=== PATIENT | female | born 1980 | race Caucasian/White ===

== ENCOUNTER 2016-12-06 08:15 | Inpatient (IN) | payer OTHER ==
[~2016-12-06] VITALS: Ht 175.3 cm; Wt 94.0 kg
[2016-12-06] VITALS (18 sets, daily range): BP systolic 93–134; BP diastolic 55–81
[~2016-12-06 08:15] MED LIST: K-DUR10 MEQ PO; METHADONE10 MG PO; OXYCODONE HCL15 MG PO; SYNTHROID25 MCG PO; XANAX0.5 MG PO
[2016-12-06] MEDS ORDERED: METHADONE HCL40 MG PO (08:58)
[2016-12-06] MEDS ORDERED: METHADONE10 MG PO (08:59)
[2016-12-06 09:18] LABS: EOSINOPHIL (%) 1.7 % (0-5); EOSINOPHIL COUNT 0.2 K/uL (0-0.3); HEMATOCRIT 33.2 % (36.0-46.0); IMMATURE GRANULOCYTE (%) 0.3 % (0.0-0.7); MCH 27.4 PG (29.0-34.0); MCHC 33.1 G/DL (30.0-36.0); MCV 82.8 FL (83-99); MEAN PLAT.VOLUME 10.3 uM^3 (9.5-12.4); MONOCYTE (%) 9.7 % (3-12); MONOCYTE COUNT 0.9 K/uL (0-0.8); NEUTROPHIL (%) 66.8 % (45-76); NEUTROPHIL COUNT 6.3 K/uL (1.8-6.4); PLATELET COUNT 310 K/uL (156-360); RBC DIS.WIDTH-CV 13.4 % (11.8-14.6); RBC DIS.WIDTH-SD 40.7 % (39-53); RED BLOOD COUNT 4.01 M/uL (3.80-5.20); WHITE BLOOD COUNT 9.5 K/uL (4.1-10.2)
[2016-12-06 11:46] LABS: HPCA INDEX 0.08
[2016-12-06 13:02] LABS: AMPHETAMINES QUANT VALUE 0 NG/ML; BARBITUATES QUANT VALUE 0 NG/ML; BENZODIAZEPINES QUANT VALUE 0 NG/ML; BENZODIAZEPINES, URINE SCREEN Negative (200 ng/mL); OPIATES QUANTITATIVE VALUE 0 NG/ML; PHENCYCLIDINE QUANT VALUE 0 NG/ML
[2016-12-07 06:46] LABS: NRBC (%) 0.6 /100 WBC (0-0)
[2016-12-07 07:29] LABS: EOSINOPHIL COUNT 0.1 K/uL (0-0.3); HEMATOCRIT 27.2 % (36.0-46.0); IMMATURE GRANULOCYTE (%) 0.5 % (0.0-0.7); IMMATURE GRANULOCYTE COUNT 0.1 K/uL; LYMPHOCYTE COUNT 2.4 K/uL (1.0-2.8); MCH 28.4 PG (29.0-34.0); MCHC 34.2 G/DL (30.0-36.0); MCV 83.2 FL (83-99); MONOCYTE (%) 10.4 % (3-12); MONOCYTE COUNT 1.4 K/uL (0-0.8); NEUTROPHIL (%) 69.7 % (45-76); NEUTROPHIL COUNT 9.3 K/uL (1.8-6.4); RBC DIS.WIDTH-CV 13.3 % (11.8-14.6); RBC DIS.WIDTH-SD 40.8 % (39-53); RED BLOOD COUNT 3.27 M/uL (3.80-5.20)
[2016-12-07 07:40] LABS: WHITE BLOOD COUNT 13.3 K/uL (4.1-10.2)
[2016-12-07 07:45] VITALS: BP 116/67
[2016-12-07 08:21] LABS: MEAN PLAT.VOLUME 9.8 uM^3 (9.5-12.4); PLAT.SUFFICIENCY ADEQUATE
[2016-12-07 08:34] LABS: PLATELET COUNT 210 K/uL (156-360)
[2016-12-07 15:28] VITALS: BP 117/65
[2016-12-07] MEDS ORDERED: Tylenol Extra Streng PO (19:09)
[2016-12-07] MEDS ORDERED: IBUPROFEN800 MG PO (19:15)
[2016-12-07] MEDS ORDERED: OXAYDO5 MG PO (19:15)
== END 2016-12-07 19:55 | disposition home or self-care (01) | DRG 774 ==
LOC: LDRP-OP → 2WEST 08:16 → LDRP-OP 08:20 → 2WEST 18:05 → LDRP-OP 01-14 23:39
PROVIDERS: Advanced Practice Midwife
PROC: 10E0XZZ Delivery of Products of Conception, External Approach (ICD-10-PCS; principal; 2016-12-06)
PROC: 10907ZC Drainage of Amniotic Fluid, Therapeutic from Products of Conception, Via Natural or Artificial Opening (ICD-10-PCS; 2016-12-06)
PROC: 3E0S3BZ Introduction of Anesthetic Agent into Epidural Space, Percutaneous Approach (ICD-10-PCS; 2016-12-06)
DX: O99.344 Other mental disorders complicating childbirth (principal); O98.52 Other viral diseases complicating childbirth; F11.20 Opioid dependence, uncomplicated; F33.9 Major depressive disorder, recurrent, unspecified; O99.354 Diseases of the nervous system complicating childbirth; Z37.0 Single live birth; O99.334 Smoking (tobacco) complicating childbirth; F12.90 Cannabis use, unspecified, uncomplicated; F17.210 Nicotine dependence, cigarettes, uncomplicated; Z3A.39 39 weeks gestation of pregnancy; O09.513 Supervision of elderly primigravida, third trimester; M54.9 Dorsalgia, unspecified; E03.9 Hypothyroidism, unspecified; O69.81X1 Labor and delivery complicated by cord around neck, without compression, fetus 1; B00.9 Herpesviral infection, unspecified; G97.1 Other reaction to spinal and lumbar puncture; E87.6 Hypokalemia; D64.9 Anemia, unspecified; M51.26 Other intervertebral disc displacement, lumbar region; G89.29 Other chronic pain; O99.013 Anemia complicating pregnancy, third trimester; O99.285 Endocrine, nutritional and metabolic diseases complicating the puerperium; O22.02 Varicose veins of lower extremity in pregnancy, second trimester; O26.891 Other specified pregnancy related conditions, first trimester; Z87.11 Personal history of peptic ulcer disease; Z56.0 Unemployment, unspecified
CPT/HCPCS: 80306 90; 85025; 86803; C1755; J3010; J7120

== ENCOUNTER → 2016-12-11 | Day surgery (SDC) | payer OTHER ==
[~2016-12-11] MED LIST changes: +IBUPROFEN800 MG PO; +METHADONE HCL40 MG PO; +OXAYDO5 MG PO; +Tylenol Extra Streng PO
== END | disposition home or self-care (01) ==
LOC: PAIN 15:36 → EDSTATUS 12-12 15:30 → CATH 12-12 15:30
PROC: 3E0S3GC Introduction of Other Therapeutic Substance into Epidural Space, Percutaneous Approach (ICD-10-PCS; principal; 2016-12-11)
DX: G97.1 Other reaction to spinal and lumbar puncture (principal)

== ENCOUNTER 2017-03-11 08:21 | Day surgery (SDC) | payer OTHER ==
[~2017-03-11] VITALS: Ht 175.3 cm; Wt 80.7 kg
[~2017-03-11 08:21] MED LIST changes: +CATAPRES0.2 MG PO; +DOLOPHINE HCL5 MG PO; +LEVO-T25 MCG PO; +NAPROSYN500 MG PO; +PERCOCET 7.51 TABLET PO; +VALTREX50 MG/ML PO; +ZANAFLEX4 MG PO
[2017-03-12 11:29] LABS: INTERNAL CONTROL VALID? YES
== END 2017-03-11 09:45 | disposition home or self-care (01) ==
LOC: PAIN 08:21
PROVIDERS: Anesthesiology Pain Medicine
DX: M47.816 Spondylosis without myelopathy or radiculopathy, lumbar region (principal); F41.9 Anxiety disorder, unspecified; G89.29 Other chronic pain; E03.9 Hypothyroidism, unspecified; F17.200 Nicotine dependence, unspecified, uncomplicated
CPT/HCPCS: 84703; J1030; J2250; J3010; S0020